=== PATIENT | male | born 1980 | race Two or more races ===

== ENCOUNTER 2018-12-22 06:50 | Emergency (ER) | payer MEDICAID, OTHER ==
[~2018-12-22] VITALS: Ht 170.2 cm; Wt 102.1 kg
--- NOTE | 2018-12-22 07:20 | NUR ---
ASSUME PT CARE.RESTING IN BED. ON MONITOR AND SEIZURE PRECAUTION.
[2018-12-22 07:23] LABS: BASOPHILS # (AUTO) 0.1 /CMM (0.0-0.2); BASOPHILS % (AUTO) 0.6 % (0.0-2.0); EOSINOPHILS % (AUTO) 0.2 % (0.0-6.0); HEMATOCRIT 50 % (39-51); HEMOGLOBIN 17.2 g/dL (13.5-17.5); LYMPHOCYTES # (AUTO) 2.7 /CMM (0.8-4.8); LYMPHOCYTES % (AUTO) 24.7 % (20.0-44.0); MEAN CORPUSCULAR HGB CONC 35 g/dl (31.0-36.0); MEAN CORPUSCULAR VOLUME 84 fL (80-96); MONOCYTES # (AUTO) 0.4 /CMM (0.1-1.30); MONOCYTES % (AUTO) 3.7 % (2.0-12.0); NEUTROPHILS # (AUTO) 7.6 /CMM (1.8-8.9); NEUTROPHILS % (AUTO) 70.8 % (43.0-81.0); PLATELET COUNT (AUTO) 350 /CMM (150-450); RED BLOOD CELL COUNT(AUTO) 5.94 MIL/uL (4.5-6.0); WHITE BLOOD COUNT (AUTO) 10.8 K/uL (4.3-11.0)
[2018-12-22 07:26] LABS: CALCIUM, SERUM 8.8 mg/dL (8.5-10.1); CREATININE 0.9 mg/dL (0.6-1.3); POTASSIUM 3.6 mmol/L (3.5-5.1)
--- NOTE | 2018-12-22 07:48 | NUR ---
[employer] UNIT [id number] AT BEDSIDE
[2018-12-22 08:17] VITALS: BP 141/80
--- NOTE | 2018-12-22 08:17 | NUR ---
Patient discharged to home in stable condition. Written and verbal after care instructions given. Patient verbalizes understanding of instruction.IV removed. Catheter intact and site benign. Pressure and 4x4 applied to site. No bleeding noted.
== END 2018-12-22 08:18 | disposition home or self-care (01) ==
LOC: ER 06:52
DX: G40.909 Epilepsy, unspecified, not intractable, without status epilepticus (principal); V49.49XA Driver injured in collision with other motor vehicles in traffic accident, initial encounter; Y93.89 Activity, other specified; Y92.410 Unspecified street and highway as the place of occurrence of the external cause; Y99.8 Other external cause status
CPT/HCPCS: 36415; 80048-TC; 80156-TC; 85025-TC